=== PATIENT | male | born 2000 | race African-American/Black ===

== ENCOUNTER 2020-04-09 03:31 | Emergency (ER) | payer OTHER ==
[~2020-04-09] VITALS: Ht 180.3 cm; Wt 72.6 kg
[2020-04-09] MEDS ORDERED: CYCLOBENZAPRINE10 MG PO (04:50)
[2020-04-09] MEDS ORDERED: IBU800 MG PO (04:50)
== END 2020-04-09 04:59 | disposition home or self-care (01) ==
LOC: ED 03:31
DX: T14.8XXA Other injury of unspecified body region, initial encounter (principal); S09.90XA Unspecified injury of head, initial encounter; M54.2 Cervicalgia; R07.9 Chest pain, unspecified; M79.671 Pain in right foot; F17.200 Nicotine dependence, unspecified, uncomplicated; V89.2XXA Person injured in unspecified motor-vehicle accident, traffic, initial encounter; Y93.89 Activity, other specified; Y92.89 Other specified places as the place of occurrence of the external cause; Y99.8 Other external cause status